=== PATIENT | female | born 1990 | race Caucasian/White ===

== ENCOUNTER 2023-10-28 16:24 | Outpatient (CLI) | payer OTHER, SELFPAY | END 2023-10-28 23:59 | LOC: LAB.DROPOF 16:24 | PROVIDERS: PCP Obstetrics & Gynecology; Visit Provider Obstetrics & Gynecology | DX: O26.892 Other specified pregnancy related conditions, second trimester (principal); Z3A.14 14 weeks gestation of pregnancy; B96.89 Other specified bacterial agents as the cause of diseases classified elsewhere | CPT/HCPCS: 87086 ==

== ENCOUNTER 2023-12-01 13:42 | Outpatient (CLI) | payer OTHER, SELFPAY ==
--- NOTE | 2023-12-01 13:43 | US_ITS ---
PROCEDURE: US OB /MATERNAL DETAIL CLINICAL INDICATION: 20 week anatomy scan COMPARISON: No exams were available for comparison FINDINGS: Transabdominal sonographic images of the pelvis were obtained. From her established due date she is 19 weeks 6 days. Single viable intrauterine gestation. Breech position. Placenta: Anteriorplacenta grade 1. There is an average amount of fluid. The cervix appears satisfactory. Closed and measuring 3.76 cm. In length. Complete survey performed and was unremarkable on the submitted images as in PACS. No discrete anomalies identified on survey imaging by technologist. Active fetus. Three-vessel cord with satisfactory umbilical cord insertion. 4- chamber heart noted. Situs, aortic arch, LVOT, RVOT, three-vessel view appear normal. Survey of brain & ventricles Unremarkable. Cerebellum, thalamus, choroid plexus, cisterna magna appear normal. Face and neck survey unremarkable. Profile, nasion, lips and nose appeared normal. Diaphragm and chest views unremarkable. Abdomen: Both kidneys noted and unremarkable. Stomach and bladder noted and satisfactory. Spine: Survey of the spine satisfactory with no anomalies identified nor imaged. Cervical, thoracic, lower spine appear normal. Both arms and legs noted. Amniotic Fluid: Adequate. Measurements: Average ultrasound age 20weeks 0 days. Estimated due date by ultrasound age 0804/19/2024. Estimated weight 324g BPD = 20weeks 0 days HC = 20weeks 1day AC = 20weeks 5days FL = 19weeks 1day Growth Percentile= 52 Heart Rate = 169bpm Cerebellum = 19weeks 6days Humerus = 20weeks 1day HC/AC is 1.14 FL/BPD is 0.64 FL/AC is 0.19 IMPRESSION: 1. Viable fetus in the breech presentation with anterior placenta grade 1. 2. The fluid is within normal limits. 3. Anatomical scan appears normal. 4. biometry is consistent with the dates. Dictated by: Alen Nash MD 12/01/2023 16:01 Alen Nash MD in [facility] 12/01/2023 16:01
== END 2023-12-01 23:59 | disposition home or self-care (01) ==
LOC: RAD 13:43
PROVIDERS: PCP Obstetrics & Gynecology; Visit Provider Obstetrics & Gynecology
DX: O26.892 Other specified pregnancy related conditions, second trimester (principal); Z3A.19 19 weeks gestation of pregnancy
CPT/HCPCS: 76811